=== PATIENT | male | born 1965 | race Caucasian/White ===

== ENCOUNTER 2020-01-11 18:45 | Outpatient (CLI) | payer OTHER, SELFPAY ==
--- NOTE | ~2020-01-11 | XR_ITS ---
EXAMINATION: XR chest 2V DATE: 01/11/2020 19:02 INDICATION: Cough TECHNIQUE: PA and lateral views of the chest are obtained. COMPARISON: None available FINDINGS: The lungs are free of acute opacities. There is no pleural effusion or pneumothorax. The ca rdiomediastinal silhouette is normal. There is mild thoracic spondylosis. IMPRESSION: 1. No acute cardiopulmonary abnormality. Reviewed, dictated and finalized at location A.
== END 2020-01-11 18:46 | disposition home or self-care (01) ==
PROVIDERS: PCP Family Medicine; Visit Provider Nurse Practitioner
DX: R05 Cough (principal)
CPT/HCPCS: 71046

== ENCOUNTER 2020-09-25 17:02 | Outpatient (CLI) | payer OTHER, SELFPAY | END 2020-09-25 17:03 | disposition home or self-care (01) | LOC: ANHCOVIDVC 17:02 | PROVIDERS: PCP Family Medicine | DX: Z23 Encounter for immunization (principal) | CPT/HCPCS: 0001A; 91300 ==

== ENCOUNTER 2020-10-16 17:32 | Outpatient (CLI) | payer OTHER, SELFPAY | END 2020-10-16 17:33 | disposition home or self-care (01) | LOC: ANHCOVIDVC 17:32 | PROVIDERS: PCP Family Medicine | DX: Z23 Encounter for immunization (principal) | CPT/HCPCS: 0002A; 91300 ==

== ENCOUNTER 2020-12-03 16:45 | Outpatient (CLI) | payer OTHER, SELFPAY ==
--- NOTE | ~2020-12-03 | XR_ITS ---
XR forearm RT 2V DATE: 12/03/2020 17:10 INDICATION: Right arm pain TECHNIQUE: AP and lateral views COMPARISON: None FINDINGS: No fracture or dislocation, periosteal reaction or bone destruction. Normal alignment at th e elbow and wrist joints. IMPRESSION: Negative Reviewed, dictated and finalized at location B. IMPRESSION: Negative
--- NOTE | ~2020-12-03 | XR_ITS ---
XR elbow RT min 3V DATE: 12/03/2020 17:10 INDICATION: Posterior medial elbow pain TECHNIQUE: 4 views COMPARISON: None FINDINGS: No fracture or dislocation or joint effusion. No periosteal reaction or bone destruction. IMPRESSION: No significant abnormality Reviewed, dictated and finalized at location B. IMPRESSION: No significant abnormality
== END 2020-12-03 16:46 | disposition home or self-care (01) ==
LOC: ANHIMG 16:50
PROVIDERS: PCP Family Medicine; Visit Provider Nurse Practitioner Family
DX: M79.601 Pain in right arm (principal)
CPT/HCPCS: 73080; 73090

== ENCOUNTER 2023-10-29 03:35 | Emergency (ER) | payer OTHER, SELFPAY ==
[2023-10-29 03:36] VITALS: BP 118/84; PULSE 67; RESP 16; TEMP 36.6; O2SAT 100
[2023-10-29] MEDS: TETRACAINE HCL 0.5% OPHTH SOLN 4 ML BTL 1 DROP EACH EYE (03:57)
[2023-10-29] MEDS: FLUORESCEIN SOD 1 MG/STRIP EACH EYE (03:57)
--- NOTE | 2023-10-29 03:58 | ED.GENADULT ---
HPI - General Adult General Chief complaint: Eye Problems Stated complaint: scratched L eye Time Seen by Provider: 10/29/23 03:48 History of Present Illness HPI narrative: This is a 57-year-old male presenting ED with left eye pain. Patient was taking out his garbage when a car were box below up and scratched his left eye. He now has pain and blurry vision. Patient typically wears contacts. Related Data Allergies Allergy/AdvReac Type Severity Reaction Status Date / Time No Known Allergies Allergy Mild Unverified 01/26/11 03:10 Exam Narrative: APPEARANCE: No apparent distress. Head: atraumatic. EYES: Visual acuity per RN note. Fluorescein stain showed a large corneal abrasion over the left cornea at 9:00 a.m., intra-ocular pressures 13 NOSE: Atraumatic NECK: Trachea midline RESPIRATORY: No increased rate of breathing CARDIOVASCULAR: RRR, ABDOMINAL: Non-distended MUSCULOSKELETAl: No obvious deformities NEURO: Alert. Moving 4/4 extremities SKIN:: Warm, dry. Normal color PSYCHIATRIC: Normal affect Course Vital Signs Vital signs: Vital Signs Temperature 98 F 10/29/23 03:36 Pulse Rate 67 10/29/23 03:36 Respiratory Rate 16 10/29/23 03:36 Blood Pressure 118/84 10/29/23 03:36 Pulse Oximetry 100 10/29/23 03:36 Oxygen Delivery Room Air 10/29/23 03:36 Temperature 98 F 10/29/23 03:36 Pulse Rate 67 10/29/23 03:36 Respiratory Rate 16 10/29/23 03:36 Blood Pressure 118/84 10/29/23 03:36 Pulse Oximetry 100 10/29/23 03:36 Oxygen Delivery Room Air 10/29/23 03:36 Medical Decision Making [facility] Narrative Medical decision making narrative: -Course: 57-year-old presenting with large corneal abrasion. Placed on antibiotics given pain medication. Stressed the importance of close Ophthalmology follow-up. Patient has an motion graphics artist that he will call 1st thing tomorrow morning. -DDX includes but is not limited to: Corneal abrasion, foreign body -Interventions: Tdap, Motrin, Tylenol -Shared decision making / Disposition: discharged -RX Ocuflox, oxycodone, Tylenol Vital Signs Vital Signs: Vital Signs Temperature 98 F 10/29/23 03:36 Pulse Rate 67 10/29/23 03:36 Respiratory Rate 16 10/29/23 03:36 Blood Pressure 118/84 10/29/23 03:36 Pulse Oximetry 100 10/29/23 03:36 Oxygen Delivery Room Air 10/29/23 03:36 Temperature 98 F 10/29/23 03:36 Pulse Rate 67 10/29/23 03:36 Respiratory Rate 16 10/29/23 03:36 Blood Pressure 118/84 10/29/23 03:36 Pulse Oximetry 100 10/29/23 03:36 Oxygen Delivery Room Air 10/29/23 03:36 Discharge Plan Discharge Clinical Impression: Corneal abrasion Patient Disposition: Home, Self-Care Condition: Stable Instructions: Antibiotic Form, Corneal Abrasion (DC) Additional Instructions: Please use the eyedrops as directed. Use Tylenol for pain and oxycodone for breakthrough pain. It is very important that you follow-up with your motion graphics artist in the next 24-48 hours as your corneal abrasion is quite large and could affect your vision if it does not heal correctly Do not were contacts until cleared by her motion graphics artist. Prescriptions: New ofloxacin [Ocuflox] 0.3 % drops See Rx Instructions .ROUTE .COMPLEX Qty: 5 0RF Rx Instructions: put 1-2 drps into affected eye(s) every 2-4 h x 2 days, then 1-2 drps 4 times/day days 3-7 acetaminophen 500 mg tablet 1,000 mg PO TID PRN (Reason: sophie) 7 Days Qty: 42 0RF oxycodone 5 mg tablet 5 mg PO Q4H PRN (Reason: pain) Qty: 10 0RF Follow-up/Referrals: Rakan Gilmore MD [Physician] -
[2023-10-29] MEDS: ACETAMINOPHEN 500 MG TABLET 1000 MG PO (04:07)
[2023-10-29] MEDS: IBUPROFEN 400 MG TABLET 800 MG PO (04:07)
[2023-10-29] MEDS: TETANUS,DIPHTHERIA,AC PERTUSSIS ADULT (0.5 ML) BOOSTRIX IM (04:07)
[2023-10-29 04:14] VITALS: BP 116/79; PULSE 64; RESP 17; O2SAT 100
== END 2023-10-29 04:15 | disposition home or self-care (01) ==
PROVIDERS: Emergency Provider Emergency Medicine; PCP Family Medicine
DX: S05.02XA Injury of conjunctiva and corneal abrasion without foreign body, left eye, initial encounter (principal); Z23 Encounter for immunization
CPT/HCPCS: 90471; 90715; 99283; A9270

== ENCOUNTER 2025-07-07 22:40 | Emergency (ER) | payer OTHER, SELFPAY ==
--- NOTE | ~2025-07-07 | XR_ITS ---
Examination: XR chest 2V Clinical History: cheat pain Comparison: 01/11/2020 Technique: PA and Lateral Findings: Cardiomediastinal silhouette normal size and configuration. Lungs clear. No acute bony abnormality. IMPRESSION: 1. No acute cardiopulmonary findings. Reviewed, dictated and finalized at location R. [employer]BI[employer]CH[employer]IC
--- NOTE | 2025-07-07 22:42 | ECG_ITS ---
Test Date: 2025-07-07 22:45:01 Measurements Intervals [place] Rate: 88 P: 23 WI: 147 QRS: 11 QRSD: 87 T: 56 QT: 353 QTc: 429 Interpretive Statements SINUS RHYTHM CONSIDER RIGHT VENTRICULAR CONDUCTION DELAY BASELINE ARTIFACT- I, III, AVR, AVL, AVF, V1, V3-V6 BORDERLINE ECG No previous ECG available for comparison Electronically Signed On 07-08-2025 08:37:03 [employer]IDENT [employer] by Chris Lopes D.O.
[2025-07-07 22:49] VITALS: BP 147/90; PULSE 95; RESP 20; TEMP 36.8; O2SAT 99
[2025-07-07 23:02] LABS: Hematocrit 46.6 % (42.0-52.0); Hemoglobin 15.8 g/dL (14.0-18.0); Immature Granulocyte Percent A 0.5 % (0-0.5); Lymphocytes Absolute Auto 2.99 K/mm3 (0.9-3.2); Mean Corpuscular HGB Conc 33.9 g/dl (32-36); Mean Corpuscular Hemoglobin 29.4 pg (26-34); Mean Corpuscular Volume 86.8 fl (80-100); Nucleated Red Blood Cells Absolute Auto 0.000 K/mm3 (0.0-0.012); Nucleated Red Blood Cells Perc 0.0 % (0.0-0.2); Platelet Count Result 343 k/mm3 (150-375); Red Blood Count 5.37 M/mm3 (4.6-6.20); White Blood Count 14.6 K/mm3 (4.5-10.0)
[2025-07-07 23:15] LABS: INR 1.0; Prothrombin Time 13.1 Seconds (11.1-14.7)
[2025-07-07 23:16] LABS: Alanine Aminotransferase 40 U/L (6-50); Albumin Level 4.3 g/dL (3.5-5.1); Alkaline Phosphatase 95 U/L (38-126); Anion Gap 8 mmol/L (4-12); Aspartate Amino Transferase 33 U/L (17-59); Bilirubin,Total 0.4 mg/dL (0.2-1.3); Blood Urea Nitrogen 20 mg/dL (9-20); Calcium 9.2 mg/dL (8.4-10.2); Carbon Dioxide 22 mmol/L (22-30); Chloride 108 mmol/L (98-107); Estimated CRCL calculation 57 ml/min; Estimated Glomerular Filt Rate > 60; Glucose 193 mg/dL (65-110); Lipase 52 U/L (23-300); Partial Thromboplastin Time 30.4 Seconds (22.3-36.8); Potassium 4.1 mmol/L (3.4-5.0); Sodium 138 mmol/L (137-145); Total Protein 7.8 g/dL (6.3-8.2)
[2025-07-07 23:23] LABS: Troponin I < 0.012 ng/mL (0.000-0.034)
--- NOTE | 2025-07-08 01:52 | ECG_ITS ---
Test Date: 2025-07-08 02:12:26 Measurements Intervals [place] Rate: 73 P: 16 NC: 154 QRS: 2 QRSD: 90 T: 45 QT: 401 QTc: 443 Interpretive Statements SINUS RHYTHM WITH OCCASIONAL SUPRAVENTRICULAR PREMATURE COMPLEXES INCOMPLETE RIGHT BUNDLE BRANCH BLOCK BASELINE ARTIFACT- I, II, III, AVR, AVL ,AVF BORDERLINE ECG Compared to ECG 07/07/2025 22:45:01 No significant changes Electronically Signed On 07-08-2025 08:19:23 [employer] BR[employer] ARTIST by Chris Lopes D.O.
[2025-07-08 02:02] VITALS: BP 105/78; PULSE 77; RESP 23; TEMP 36.9; O2SAT 97
--- NOTE | 2025-07-08 02:30 | PC.NURSE ---
Pt refused viral swab per ELIDA Peng
[2025-07-08 02:54] LABS: Troponin I < 0.012 ng/mL (0.000-0.034)
[2025-07-08] MEDS: ASPIRIN 81 MG CHEWABLE TABLET 324 MG PO (02:54)
[2025-07-08] MEDS: MORPHINE SULFATE (*CRX) 4 MG/ML INJ 2 MG IV PUSH (04:08)
--- NOTE | 2025-07-08 04:36 | ED.GENADULT ---
HPI - General Adult General Chief complaint: Chest Pain Stated complaint: pain LT side upper chest Time Seen by Provider: 07/08/25 03:14 History of Present Illness HPI narrative: Patient is a 59-year-old gentleman who presents emergency department with chief complaint of left-sided chest discomfort. Patient reports that he was over his friend's house and was playing video game that had a squeezing sensation in the left side of his chest reports that was pretty severe initially and has tapered off that it is mild now patient reports no prior cardiac disease reports that he has had a stress test in the past but did not require cardiac catheterization has no stents Related Data Home Medications ?Medication ?Instructions ?Recorded ?Confirmed ?Last Taken ?Type amlodipine 10 mg tablet mg PO 06/25/25 06/25/25 Unknown History citalopram 20 mg tablet mg PO 06/25/25 06/25/25 Unknown History glipizide 5 mg tablet mg PO 06/25/25 06/25/25 Unknown History lisinopril 30 mg tablet mg PO 06/25/25 06/25/25 Unknown History omeprazole 20 mg capsule,delayed mg PO 06/25/25 06/25/25 Unknown History release Allergies Allergy/AdvReac Type Severity Reaction Status Date / Time No Known Allergies Allergy Mild Verified 07/07/25 22:52 Review of Systems Review of Systems: A 10 system review of systems was completed on the patient and is negative except for what is stated in the HPI. Nursing and ancillary documentation was reviewed. PMFSH Past Medical History Medical History Tinnitus Social History Social History Smoking status: Current every day smoker Tobacco type: cigarettes Alcohol intake: current Alcohol use details: rare Substance use type: does not use Exam Narrative: GENERAL: Well-appearing, well-nourished, and in no acute distress. HEAD: Normocephalic, atraumatic. EYES: PERRLA and EOMI. ENT: Nares clear, no rhinorrhea or epistaxis. Mucous membranes moist. NECK: Supple. CHEST: Clear to auscultation. No respiratory distress. HEART: Regular rate and rhythm. No murmur heard. Normal peripheral pulses. ABDOMEN: Soft, nontender, nondistended, normal active bowel sounds. EXTREMITIES: Normal range of motion. No edema. SKIN: Warm, dry, no rash. NEURO: No focal deficits. Alert and oriented x3. PSYCH: Normal mood and affect. Course Vital Signs Vital signs: Vital Signs Temperature 36.8 C 07/07/25 22:49 Pulse Rate 95 07/07/25 22:49 Respiratory Rate 20 07/07/25 22:49 Blood Pressure 147/90 H 07/07/25 22:49 Pulse Oximetry 99 07/07/25 22:49 Oxygen Delivery Room Air 07/07/25 22:49 Temperature 36.9 C 07/08/25 02:02 Pulse Rate 62 07/08/25 04:37 Respiratory Rate 24 H 07/08/25 04:37 Blood Pressure 124/73 07/08/25 04:37 Pulse Oximetry 94 07/08/25 04:37 Oxygen Delivery Room Air 07/08/25 02:02 MDM Differential Diagnosis Differential Diagnosis: Differential diagnosis includes ACS, pneumonia, pleurisy, atypical chest pain, pulmonary embolism, musculoskeletal pain EKG showed no acute ischemic changes initial troponin was negative Repeat troponin was also negati D-dimer was negative as well Chest x-ray showed no focal infiltrates no pneumothorax or widened Lab Data 07/07/25 22:55 07/07/25 22:55 Labs: Lab Results 07/07/25 07/08/25 07/08/25 Range/Units 22:55 02:16 04:06 WBC 14.6 H (4.5-10.0) K/mm3 RBC 5.37 (4.6-6.20) M/mm3 Hgb 15.8 (14.0-18.0) g/dL Hct 46.6 (42.0-52.0) % MCV 86.8 (80-100) fl MCH 29.4 (26-34) pg MCHC 33.9 (32-36) g/dl RDW 12.3 (11.5-14.5) % Plt Count 343 (150-375) k/mm3 MPV 9.4 (7.4-10.4) fl Immature Gran % (Auto) 0.5 (0-0.5) % Neut % (Auto) 69.6 (45.5-73.1) % Lymph % (Auto) 20.5 (18.3-44.2) % [place] % (Auto) 7.9 (2.6-8.5) % Eos % (Auto) 1.0 (0-4.4) % Baso % (Auto) 0.5 (0.2-1.2) % Lymph # (Auto) 2.99 (0.9-3.2) K/mm3 [place] # (Auto) 1.2 H (0.1-0.6) K/mm3 Eos # (Auto) 0.2 (0-0.3) K/mm3 Baso # (Auto) 0.1 (0.0-0.1) K/mm3 Abs Immat Gran (auto) 0.07 H (0.00-0.031) K/mm3 Absolute Neuts (auto) 10.2 H (1.3-6.7) K/mm3 Absolute Nucleated RBC 0.000 (0.0-0.012) K/mm3 Nucleated RBC % 0.0 (0.0-0.2) % PT 13.1 (11.1-14.7) Seconds INR 1.0 APTT 30.4 (22.3-36.8) Seconds D-Dimer 0.36 (<0.48) ug/mL Sodium 138 (137-145) mmol/L Potassium 4.1 (3.4-5.0) mmol/L Chloride 108 H (98-107) mmol/L Carbon Dioxide 22 (22-30) mmol/L Anion Gap 8 (4-12) mmol/L BUN 20 (9-20) mg/dL Creatinine 1.18 (0.7-1.3) mg/dL Estim Creat Clear Calc 57 ml/min Estimated GFR > 60 (59 - ) Glucose 193 H (65-110) mg/dL Calcium 9.2 (8.4-10.2) mg/dL Total Bilirubin 0.4 (0.2-1.3) mg/dL AST 33 (17-59) U/L ALT 40 (6-50) U/L Alkaline Phosphatase 95 (38-126) U/L Troponin I < 0.012 < 0.012 (0.000-0.034) ng/mL Total Protein 7.8 (6.3-8.2) g/dL Albumin 4.3 (3.5-5.1) g/dL Lipase 52 (23-300) U/L Discharge Plan Discharge Clinical Impression: Atypical chest pain Patient Disposition: Home Condition: Stable Instructions: Antibiotic Form, Chest Pain (ED) Patient Language: Colombian Prescriptions: No Action citalopram 20 mg tablet PO amlodipine 10 mg tablet PO lisinopril 30 mg tablet PO omeprazole 20 mg capsule,delayed release(DR/EC) PO glipizide 5 mg tablet PO acetaminophen 500 mg tablet 1,000 mg PO TID PRN (Reason: sophie) 7 Days Qty: 42 0RF Follow-up/Referrals: Marcelino Mckeon MD [Primary Care Provider, Family Practice] Time of Disposition: 05:08
[2025-07-08 04:37] VITALS: BP 124/73; PULSE 62; RESP 24; O2SAT 94
[2025-07-08 05:17] VITALS: BP 120/72; PULSE 68; RESP 16; O2SAT 94
== END 2025-07-08 05:21 | disposition home or self-care (01) ==
PROVIDERS: Emergency Medicine; Emergency Provider Emergency Medicine; PCP Family Medicine
DX: R07.89 Other chest pain (principal); F17.210 Nicotine dependence, cigarettes, uncomplicated; I49.1 Atrial premature depolarization; I45.10 Unspecified right bundle-branch block; R94.31 Abnormal electrocardiogram [ECG] [EKG]
CPT/HCPCS: 36415; 71046; 80053; 83690; 84484; 85025; 85380; 85610; 85730; 93005; 96374; 99284; A9270; J2270

== ENCOUNTER 2025-07-09 12:57 | Outpatient (CLI) | payer OTHER, SELFPAY | END 2025-07-09 12:58 | disposition home or self-care (01) | LOC: ANHAUDIO 12:57 | PROVIDERS: PCP Family Medicine; Visit Provider Otolaryngology | DX: H93.19 Tinnitus, unspecified ear (principal) | CPT/HCPCS: 92557; 92567 ==